=== PATIENT | male | born 2000 | race Caucasian/White ===

== ENCOUNTER 2022-06-24 18:51 | Emergency (ER) | payer SELFPAY ==
[~2022-06-24] VITALS: Ht 182.9 cm; Wt 86.2 kg
[~2022-06-24 18:51] MED LIST: [UNRECOGNIZED DRUG - CODE] PO
[2022-06-24 19:18] VITALS: BP 154/91
--- NOTE | 2022-06-24 20:13 | NUR ---
PT TAKEN TO BED 1
[2022-06-24] MEDS ORDERED: OLAN5TAB1 PO (21:52)
[2022-06-24 22:12] VITALS: BP 152/90
== END 2022-06-24 22:05 | disposition home or self-care (01) ==
LOC: MED 18:51
DX: R44.0 Auditory hallucinations (principal); F12.10 Cannabis abuse, uncomplicated; Z79.2 Long term (current) use of antibiotics
CPT/HCPCS: 99281